=== PATIENT | male | born 1940 | race Caucasian/White ===

== ENCOUNTER 2017-06-19 17:45 | Emergency (ER) | payer OTHER, MEDICARE ==
[~2017-06-19] VITALS: Ht 180.3 cm; Wt 89.5 kg
[~2017-06-19 17:45] MED LIST: ASPIRIN EC325 MG PO; CELEBREX200 MG PO; CHILDREN'S ASPI81 M1 PO; DOCUSATE SODIU100 MG PO; FERROUS SULFAT325 MG PO; FINASTERIDE5 MG PO; GLUCOSAMINE-CH1 EA48 PO; HYDROCHLOROTHIA25 MG PO; HYDROCODON-ACE1 EAC7 PO; LISINOPRIL10 MG PO; LISINOPRIL5 MG PO; LOPRESSOR100 M1 PO; MELOXICAM15 MG PO; METHIMAZOLE5 MG PO; METOPROLOL TAR100 MG PO; MULTIPLE VITAM1 EACH PO; NAPROXEN500 MG PO; PROVENTIL HFA6.7 GM IH; SENNA PLUS TAB1 EACH PO; SIMVASTATIN10 MG PO; SIMVASTATIN20 MG PO; SIMVASTATIN40 MG PO; TAMSULOSIN HCL0.4 MG PO; VENTOLIN HFA18 GM IH; VITAMIN B12-FO1 EACH PO; VITAMIN C1000 MG PO
[2017-06-19 19:22] LABS: HEMATOCRIT 39.3 % (38.0-50.0); MCH 33.8 PG (29.0-34.0); MCHC 34.4 G/DL (30.0-36.0); MCV 98.3 FL (86-99); MEAN PLAT.VOLUME 10.9 uM^3 (9.0-12.4); PLATELET COUNT 167 K/uL (156-360); RBC DIS.WIDTH-CV 12.5 % (11.8-14.6); WHITE BLOOD COUNT 5.3 K/uL (4.1-10.2)
[2017-06-19 19:45] LABS: ANION GAP 11 MEQ/L (2-14); CHLORIDE 108 mEq/L (99-109); GFR ESTIMATE (CALCULATED) > 59 mL/min/; GLUCOSE 89 mg/dL (70-99); MAGNESIUM 2.2 mg/dL (1.3-2.7); POTASSIUM 4.1 mEq/L (3.7-5.4); SODIUM 140 mEq/L (136-147)
[2017-06-19 19:46] LABS: UREA NITROGEN (BUN) 16 mg/dL (9-23)
[2017-06-19 19:47] LABS: TROP-I INTERPRETATION NEGATIVE; TROPONIN-I < 0.01 ng/mL (0.0-0.30)
[2017-06-19] MEDS ORDERED: PREDNISONE20 MG PO (20:38)
[2017-06-19] MEDS ORDERED: DOXYCYCLINE MO100 MG PO (20:40)
[2017-06-19] MEDS ORDERED: VALTREX1000 MG PO (20:40)
[2017-06-19 20:59] VITALS: BP 149/84
== END 2017-06-19 21:02 | disposition home or self-care (01) ==
LOC: EME 17:45
DX: G51.0 Bell's palsy (principal); E78.5 Hyperlipidemia, unspecified; Z87.891 Personal history of nicotine dependence
CPT/HCPCS: 70450; 71020; 80048; 83735; 84484; 85027; 86618; 93005; 99281; 99284; J7512